=== PATIENT | female | born 1985 | race Asian ===

== ENCOUNTER 2018-03-26 07:06 | Emergency (ER) | payer OTHER ==
[~2018-03-26] VITALS: Ht 162.6 cm; Wt 76.2 kg
[2018-03-26 07:10] VITALS: BP 152/116
== END 2018-03-26 08:02 | disposition home or self-care (01) ==
LOC: ER 07:08
DX: R00.2 Palpitations (principal)
CPT/HCPCS: 93005; 99283; A4606; Z7610